=== PATIENT | male | born 1970 | race Caucasian/White ===

== ENCOUNTER 2022-11-20 15:13 | Emergency (ER) | payer OTHER ==
[~2022-11-20] VITALS: Ht 193 cm; Wt 97.1 kg
[2022-11-20 15:31] VITALS: BP 137/95
--- NOTE | 2022-11-20 15:53 | NUR ---
52 Y/O MALE BIB SELF PRESENTS TO THE ED FOR PARACENTESIS, WAS SEEN BY HER PCP AND REFFERED TO ED FOR PARACENTESIS. NOTED LARGE ROUND ASCITIC ABDOMEN, DENIES ANY PAIN ONLY DISCOMFORT EXACERBATED BY BREATHING IN DEEPLY. DENIES ANY NVD. PER PT LAST PARACENTESIS WAS "MONTHS AGO" AND ABDOMEN HAS BEEN STEADILY GETTING LARGER. [facility] PMH:ESRD, DIALYSIS MWF, DIALYSIS SHUNT L LOWER ARM, DM, HTN, HX OF PARACENTESIS NKDA
--- NOTE | 2022-11-20 16:04 | NUR ---
DR GLEZ AT BEDSIDE FOR EVAL
[2022-11-20] MEDS ORDERED: LIDOCAINE MPF 1% 5 ML ONE ×2 (17:51→17:52)
--- NOTE | 2022-11-20 17:53 | NUR ---
ERMD AT BEDSIDE FOR PROCEDURE
[2022-11-20] MEDS ORDERED: LIDOCAINE MPF 1% 10 MG/ML VIAL INJ ONE (19:10)
--- NOTE | 2022-11-20 19:20 | NUR ---
Pt report given to ESTHER BATES. Transfer of care at this time.
[2022-11-20 19:41] VITALS: BP 118/82
--- NOTE | 2022-11-20 19:42 | NUR ---
Patient discharged with v/s stable. Written and verbal after care instructions given and explained. Patient verbalized understanding. Ambulatory with steady gait. All questions addressed prior to discharge. Advised to follow up with PMD.
== END 2022-11-20 19:41 | disposition home or self-care (01) ==
LOC: MED 15:13
DX: R18.8 Other ascites (principal); R14.0 Abdominal distension (gaseous); E11.9 Type 2 diabetes mellitus without complications; I10 Essential (primary) hypertension; N18.9 Chronic kidney disease, unspecified; Z79.4 Long term (current) use of insulin; Z79.899 Other long term (current) drug therapy
CPT/HCPCS: 49083; 99285; J2001